=== PATIENT | female | born 1950 | race Caucasian/White ===

== ENCOUNTER 2023-04-19 16:15 | Inpatient (IN) | payer MEDICARE, BC ==
[2023-04-19] MEDS ORDERED: DEXTROSE 5%-0.45% NACL 1,000 ML IV ONE (16:21)
[2023-04-19 16:22] LABS: Glucose,Whole Blood 73 mg/dL (70-110)
[2023-04-19] MEDS ORDERED: NALOXONE 0.4 MG/ML 1 ML VIAL IV PRN (16:40)
--- NOTE | 2023-04-19 16:40 | ED ---
General Adult HPI - General Chief complaint: Recheck/Abnormal Lab/Rx Stated complaint: Hypoglycemia Time Seen by Provider: 04/19/23 16:18 Source: patient, RN/MD (Discussed with transferring physician), EMS, RN notes reviewed, old records reviewed (Review of records from [place]) Mode of arrival: EMS Limitations: no limitations - History of Present Illness Initial comments: Patient is a pleasant 79-year-old female presenting to the emergency Department as a transfer from [place]. Patient originally went there with a questionable seizure episode. Patient was fine and discharged. Patient later returned with hypoglycemia. Patient was held and had recurrent hypoglycemia. Patient was then decided to transfer secondary to level of care. Patient reevaluated at this time. Blood sugar bedside 74. Patient is symptom-free currently. Patient does not recall the episode earlier this morning. Chart was reviewed. - Related Data Allergies Allergy/AdvReac Type Severity Reaction Status Date / Time No Known Allergies Allergy Verified 04/19/23 16:29 Review of Systems ROS Statement: Those systems with pertinent positive or pertinent negative responses have been documented in the HPI. ROS Other: All systems not noted in ROS Statement are negative. Constitutional: Denies: fever Eyes: Denies: eye pain ENT: Denies: ear pain Respiratory: Denies: cough Cardiovascular: Denies: chest pain Endocrine: Denies: fatigue Gastrointestinal: Denies: abdominal pain Genitourinary: Denies: dysuria Past Medical History Past Medical History: Atrial Fibrillation History of Any Multi-Drug Resistant Organisms: None Reported Past Surgical History: No Surgical Hx Reported Smoking Status: Former smoker Past Alcohol Use History: None Reported Past Drug Use History: None Reported General Exam Limitations: no limitations General appearance: alert, in no apparent distress Head exam: Present: atraumatic Eye exam: Present: normal appearance, PERRL, EOMI ENT exam: Present: normal oropharynx Neck exam: Present: normal inspection Respiratory exam: Present: normal lung sounds bilaterally Cardiovascular Exam: Present: regular rate, normal rhythm GI/Abdominal exam: Present: soft. Absent: tenderness Extremities exam: Present: normal inspection Neurological exam: Present: alert, oriented X3, CN II-XII intact. Absent: motor sensory deficit Psychiatric exam: Present: normal affect, normal mood Skin exam: Present: normal color Course Vital Signs 04/19/23 16:18 Temperature 98.7 F Pulse Rate 70 Respiratory 18 Rate Blood Pressure 108/60 O2 Sat by Pulse 99 Oximetry Medical Decision Making - Medical Decision Making Was pt. sent in by a medical professional or institution (, [facility], HADOOP ENGINEER, urgent care, hospital, or fpc...) When possible be specific @ -Patient was sent from [facility] Did you speak to anyone other than the patient for history (EMS, parent, family, police, friend...)? What history was obtained from this source @ -Discuss case with transferring physician Did you review nursing and triage notes (agree or disagree)? Why? @ -I reviewed and agree with nursing and triage notes Were old charts reviewed (outside hosp., previous admission, EMS record, old EKG, old radiological studies, urgent care reports/EKG's, fpc records)? Report findings @ -Viewed charts from [facility] Differential Diagnosis (chest pain, altered mental status, abdominal pain women, abdominal pain men, vaginal bleeding, weakness, fever, dyspnea, syncope, headache, dizziness, GI bleed, back pain, seizure, CVA, palpatations, mental health, musculoskeletal)? @ -Differential Altered Mental Status: Hypoglycemia, DKA, hypercapnia, ETOH, overdose, CO poisoning, trauma, myxedema coma, HTN encephalopathy, infection, encephalitis, psychosis, intercranial hemorrhage, hepatic encephalopathy, meningitis, CVA, this is not meant to be an all-inclusive list EKG interpreted by me (3pts min.). @ -As above X-rays interpreted by me (1pt min.). @ -None done CT interpreted by me (1pt min.). @ -None done U/S interpreted by me (1pt. min.). @ -None done What testing was considered but not performed or refused? (CT, X-rays, U/S, labs)? Why? @ -None What meds were considered but not given or refused? Why? @ -None Did you discuss the management of the patient with other professionals (professionals i.e. VAZQUE[facility] Clark, HADOOP ENGINEER, lab, RT, psych nurse, social work associate, ground support equipment mechanic, teacher, air antisubmarine officer, correctional case manager)? Give summary @ -Case was discussed with Dr. Milian, who will admit For hospital call. He recommends continuing D5 half. Was smoking cessation discussed for >3mins.? @ -No Was critical care preformed (if so, how long)? @ -No Were there social determinants of health that impacted care today? How? (Homelessness, low income, unemployed, alcoholism, drug addiction, transportation, low edu. Level, literacy, decrease access to med. care, fpc, rehab)? @ -No Was there de-escalation of care discussed even if they declined (Discuss DNR or withdrawal of care, Hospice)? DNR status @ -No What co-morbidities impacted this encounter? (DM, HTN, Smoking, COPD, CAD, Cancer, CVA, ARF, Chemo, Hep., AIDS, mental health diagnosis, sleep apnea, morbid obesity)? @ -None Was patient admitted / discharged? Hospital course, mention meds given and route, prescriptions, significant lab abnormalities, going to OR and other pertinent info. @ -Patient made aware of plan. Patient will be admitted. Orders written. Undiagnosed new problem with uncertain prognosis? @ -No Drug Therapy requiring intensive monitoring for toxicity (Heparin, Nitro, Insulin, Cardizem)? @ -No Were any procedures done? @ -No Diagnosis/symptom? @ -Recurrent hypoglycemia Acute, or Chronic, or Acute on Chronic? @ -Acute Uncomplicated (without systemic symptoms) or Complicated (systemic symptoms)? @ -default Side effects of treatment? @ -No Exacerbation, Progression, or Severe Exacerbation? @ -No Poses a threat to life or bodily function? How? (Chest pain, [place], PR, pneumonia, PE, COPD, DKA, ARF, appy, cholecystitis, CVA, Diverticulitis, Homicidal, Suicidal, threat to staff... and all critical care pts) @ -No - Lab Data Lab Results 04/19/23 Range/Units 16:20 POC Glucose (mg/dL) 73 (70-110) mg/dL POC Glu Dimpling Machine Operator ID Zoie Pandya Disposition Clinical Impression: Hypoglycemia Disposition: ADMITTED IP TO THIS HOSP Is patient prescribed a controlled substance at d/c from ED?: No Referrals: Nonstaff,Physician [Primary Care Provider] - 1-2 days Time of Disposition: 16:40
[2023-04-19 17:17] LABS: Appearance,Urine Clear (Clear); Basophils % (A) 0 %; Bilirubin,Urine Negative (Negative); Blood,Urine Negative (Negative); Color,Urine Colorless; Eosinophils # (A) 0.1 k/uL (0-0.7); Eosinophils % (A) 2 %; Glucose,Urine (UA) Negative (Negative); HCT 29.9 % (34.0-46.0); Ketones,Urine Negative (Negative); Leukocyte Esterase,Urine Negative (Negative); Lymphocytes # (A) 1.6 k/uL (1.0-4.8); Lymphocytes % (A) 21 %; MCH 29.8 pg (25.0-35.0); MCHC 33.3 g/dL (31.0-37.0); MCV 89.5 fL (80.0-100.0); Mean Platelet Volume 9.1; Monocytes # (A) 0.4 k/uL (0-1.0); Monocytes % (A) 5 %; Neutrophils # (A) 5.4 k/uL (1.3-7.7); Neutrophils % (A) 71 %; Nitrite,Urine Negative (Negative); Platelet Count 182 k/uL (150-450); Protein,Urine Negative (Negative); RBC 3.34 m/uL (3.80-5.40); RDW 13.7 % (11.5-15.5); Specific Gravity,Urine 1.002 (1.001-1.035); Urobilinogen,Urine <2.0 mg/dL (<2.0); WBC 7.6 k/uL (3.8-10.6)
[2023-04-19 17:25] LABS: INR 1.6 (<1.2); Partial Thromboplastin Time 26.2 sec (22.0-30.0); Prothrombin Time 15.8 sec (9.0-12.0)
--- NOTE | 2023-04-19 17:40 | XR ---
EXAMINATION TYPE: XR chest 2V DATE OF EXAM: 04/19/2023 5:36 PM COMPARISON: Chest radiographs from 02/13/2022 TECHNIQUE: XR chest 2V Frontal and lateral views of the chest. CLINICAL INDICATION:Female, 72 years old with history of Weakness; FINDINGS: Lungs/Pleura: Prominent interstitial lung markings are seen scattered throughout the lungs. No eviden ce of focal consolidation, pneumothorax or pleural effusion. Pulmonary vascularity: Pulmonary vascular congestion. Heart/mediastinum: Cardiomediastinal silhouette is prominent in size. Post aortic valve repair garcia es. Single-lead cardiac conduction device overlying the left hemithorax with lead projecting over the right ventricle. Musculoskeletal: No acute osseous pathology. IMPRESSION: Postsurgical changes to the heart. Underlying COPD with mild pulmonary vascular congestion. Correlate with serum BNP.
[2023-04-19 17:47] LABS: ALT 14 U/L (4-34); AST 27 U/L (14-36); African American GFR (CKD) 66 (>60 ml/min/1.73 sqM); Albumin 3.5 g/dL (3.5-5.0); Alkaline Phosphatase 85 U/L (38-126); Anion Gap 6 mmol/L; Blood Urea Nitrogen 23 mg/dL (7-17); Calcium 8.3 mg/dL (8.4-10.2); Carbon Dioxide 25 mmol/L (22-30); Chloride 105 mmol/L (98-107); Magnesium 1.6 mg/dL (1.6-2.3); Non-African American GFR(CKD) 57 (>60 ml/min/1.73 sqM); Phosphorus 2.6 mg/dL (2.5-4.5); Potassium 4.4 mmol/L (3.5-5.1); Sodium 136 mmol/L (137-145); Total Bilirubin 0.3 mg/dL (0.2-1.3); Total Protein 6.4 g/dL (6.3-8.2)
[2023-04-19 17:56] LABS: Glucose 44 mg/dL (74-99)
[2023-04-19] MEDS ORDERED: GLUCAGON 1 MG/ML VIAL IVP STA (17:59)
[2023-04-19] MEDS ORDERED: DEXTROSE 50% SYRINGE 50 ML IVP STA (17:59)
[2023-04-19 18:01] LABS: T4, Free (Free Thyroxine) 0.84 ng/dL (0.78-2.19)
[2023-04-19 18:03] LABS: Glucose,Whole Blood 68 mg/dL (70-110)
[2023-04-19 18:35] LABS: Glucose,Whole Blood 104 mg/dL (70-110)
[2023-04-19 19:56] LABS: Glucose,Whole Blood 133 mg/dL (70-110)
[2023-04-19 22:01] LABS: Glucose,Whole Blood 146 mg/dL (70-110)
[2023-04-19] MEDS: ZOLPIDEM 5 MG TAB PO PRN (22:37)
[2023-04-20 00:03] LABS: Glucose,Whole Blood 108 mg/dL (70-110)
[2023-04-20 01:59] LABS: Glucose,Whole Blood 118 mg/dL (70-110)
[2023-04-20 04:01] LABS: Glucose,Whole Blood 108 mg/dL (70-110)
[2023-04-20 06:05] LABS: Glucose,Whole Blood 99 mg/dL (70-110)
[2023-04-20 07:49] LABS: Glucose,Whole Blood 110 mg/dL (70-110)
[2023-04-20 08:52] VITALS: RESP 16
[2023-04-20] MEDS ORDERED: ACETAMINOPHEN TAB 325 MG TAB PO PRN (09:53)
[2023-04-20 09:58] LABS: Glucose,Whole Blood 100 mg/dL (70-110)
[2023-04-20] MEDS ORDERED: ALPRAZolam 1 MG TAB PO PRN (10:58)
[2023-04-20] MEDS ORDERED: FERROUS SULFATE 325 MG TAB PO SCH (11:15)
[2023-04-20 11:52] LABS: Basophils % (A) 0 %; Eosinophils # (A) 0.2 k/uL (0-0.7); Eosinophils % (A) 4 %; HGB 10.6 gm/dL (11.4-16.0); Hypochromasia Slight; Lymphocytes # (A) 1.8 k/uL (1.0-4.8); Lymphocytes % (A) 30 %; MCH 29.5 pg (25.0-35.0); MCV 92.3 fL (80.0-100.0); Mean Platelet Volume 9.5; Monocytes # (A) 0.3 k/uL (0-1.0); Monocytes % (A) 5 %; Neutrophils # (A) 3.6 k/uL (1.3-7.7); Neutrophils % (A) 60 %; Platelet Count 173 k/uL (150-450); RBC 3.58 m/uL (3.80-5.40); RDW 13.8 % (11.5-15.5); WBC 6.1 k/uL (3.8-10.6)
[2023-04-20 12:08] LABS: African American GFR (CKD) 72 (>60 ml/min/1.73 sqM); Anion Gap 7 mmol/L; Blood Urea Nitrogen 18 mg/dL (7-17); Calcium 9.2 mg/dL (8.4-10.2); Carbon Dioxide 24 mmol/L (22-30); Chloride 110 mmol/L (98-107); Glucose 94 mg/dL (74-99); Non-African American GFR(CKD) 63 (>60 ml/min/1.73 sqM); Potassium 4.8 mmol/L (3.5-5.1); Sodium 141 mmol/L (137-145)
[2023-04-20 12:15] LABS: Glucose,Whole Blood 122 mg/dL (70-110)
[2023-04-20 12:40] LABS: INR 1.6 (<1.2); Prothrombin Time 15.7 sec (9.0-12.0)
[2023-04-20] MEDS: SPIRONOLACTONE 25 MG TAB PO SCH (12:58)
[2023-04-20] MEDS: FERROUS SULFATE 325 MG TAB PO SCH (12:58)
[2023-04-20] MEDS: LOSARTAN 50 MG TAB PO SCH (12:59)
[2023-04-20] MEDS: FUROSEMIDE 40 MG TAB PO SCH (13:00)
[2023-04-20] MEDS: TORSEMIDE 20 MG TAB PO SCH (13:00)
[2023-04-20 14:24] LABS: Glucose,Whole Blood 133 mg/dL (70-110)
--- NOTE | 2023-04-20 14:31 | P.HPIM ---
History of Present Illness H&P Date: 04/20/23 Chief Complaint: Altered mentation * 72-year-old lady with past medical history significant for atrial fibrillation, history of congestive heart failure, status post pacemaker placement, history of valvular surgery on anticoagulation was sent in for altered mentation * Workup initiated including comprehensive metabolic panel which showed sodium of 136, BUN and creatinine of 23 0.98, blood glucose of 44. Lactate of 1. * CBC was obtained which showed normal white cell count hemoglobin of 10 platelet count of 182 * She is on Coumadin with INR of 1.6 * Secondary to persistent hypoglycemia patient was started on D5 drip and serial blood glucose levels were monitored * At the time of evaluation patient was alert and oriented 4. Workup initiated including HbA1c. Patient to be monitored off fluids REVIEW OF SYSTEMS: CONSTITUTIONAL: No fever, no malaise, no fatigue. HEENT: No recent visual problems or hearing problems. Denied any sore throat. CARDIOVASCULAR: No chest pain, orthopnea, PND, no palpitations, no syncope. PULMONARY: No shortness of breath, no cough, no hemoptysis. GASTROINTESTINAL: No diarrhea, no nausea, no vomiting, no abdominal pain. NEUROLOGICAL: No headaches, no weakness, no numbness. HEMATOLOGICAL: Denies any bleeding or petechiae. GENITOURINARY: Denies any burning micturition, frequency, or urgency. MUSCULOSKELETAL/RHEUMATOLOGICAL: Denies any joint pain, swelling, or any muscle pain. ENDOCRINE: Denies any polyuria or polydipsia. The rest of the 14-point review of systems is negative. PHYSICAL EXAMINATION: GENERAL: The patient is alert and oriented x3, not in any acute distress. Well developed, well nourished. HEENT: Pupils are round and equally reacting to light. EOMI. No scleral icterus. No conjunctival pallor. Normocephalic, atraumatic. No pharyngeal erythema. No thyromegaly. CARDIOVASCULAR: S1 and S2 present. No murmurs, rubs, or gallops. PULMONARY: Chest is clear to auscultation, no wheezing or crackles. ABDOMEN: Soft, nontender, nondistended, normoactive bowel sounds. No palpable organomegaly. MUSCULOSKELETAL: No joint swelling or deformity. EXTREMITIES: No cyanosis, clubbing, or pedal edema. NEUROLOGICAL: Gross neurological examination did not reveal any focal deficits. SKIN: No rashes. Past Medical History Past Medical History: Atrial Fibrillation, COPD, CVA/TIA, Hyperlipidemia, Hypertension, Pneumonia Additional Past Medical History / Comment(s): home o2 prn History of Any Multi-Drug Resistant Organisms: None Reported Past Surgical History: Adenoidectomy, Coronary Bypass/CABG, Hysterectomy, Pacemaker, Tonsillectomy Additional Past Surgical History / Comment(s): 2 open heart sx for aortic valve replacement Past Anesthesia/Blood Transfusion Reactions: No Reported Reaction Type of Cardiac Device: AICD Device Placement Date:: 2021 Past Psychological History: No Psychological Hx Reported Smoking Status: Former smoker Past Alcohol Use History: None Reported Past Drug Use History: None Reported Medications and Allergies Home Medications Medication Instructions Recorded Confirmed Type ALPRAZolam [Xanax] 1 mg PO TID PRN 04/19/23 04/19/23 History Fergon 324mg 1 tab PO DAILY 04/19/23 04/19/23 History Furosemide [Lasix] 40 mg PO DAILY 04/19/23 04/19/23 History HYDROcodone/APAP 10-325MG [[place] 1 tab PO Q6H PRN 04/19/23 04/19/23 History 10-325] Levocetirizine Dihydrochloride 5 mg PO HS 04/19/23 04/19/23 History [Xyzal] Losartan [Cozaar] 50 mg PO DAILY 04/19/23 04/19/23 History Naloxone HCl [Narcan] 4 mg NASAL DIRECTED PRN 04/19/23 04/19/23 History Spironolactone [Aldactone] 25 mg PO DAILY 04/19/23 04/19/23 History Torsemide [Soaanz] 20 mg PO DAILY 04/19/23 04/19/23 History Warfarin [Coumadin] 2 mg PO DAILY 04/19/23 04/19/23 History Zolpidem [Ambien] 10 mg PO HS PRN 04/19/23 04/19/23 History Allergies Allergy/AdvReac Type Severity Reaction Status Date / Time No Known Allergies Allergy Verified 04/19/23 16:29 Physical Exam Vitals: Vital Signs Temp Pulse Pulse Resp BP BP Pulse Ox 04/20/23 07:33 97.8 F 71 16 109/63 99 04/20/23 02:02 92/51 04/20/23 01:50 98.8 F 73 17 96 04/19/23 19:17 99.8 F H 64 16 111/62 99 04/19/23 18:13 74 14 106/48 95 04/19/23 16:18 98.7 F 70 18 108/60 99 Intake and Output 04/19/23 04/20/23 04/20/23 22:59 06:59 14:59 Other: Voiding Method Toilet Toilet # Voids 1 Weight 47.174 kg Results CBC & Chem 7: 04/20/23 11:09 04/20/23 11:09 Labs: Abnormal Lab Results - Last 24 Hours (Table) 04/19/23 04/19/23 04/19/23 Range/Units 16:58 16:58 16:58 RBC 3.34 L (3.80-5.40) m/uL Hgb 10.0 L (11.4-16.0) gm/dL Hct 29.9 L (34.0-46.0) % PT 15.8 H (9.0-12.0) sec INR 1.6 H (<1.2) Sodium 136 L (137-145) mmol/L Chloride (98-107) mmol/L BUN 23 H (7-17) mg/dL Glucose 44 L* (74-99) mg/dL POC Glucose (mg/dL) (70-110) mg/dL Calcium 8.3 L (8.4-10.2) mg/dL 04/19/23 04/19/23 04/19/23 Range/Units 17:57 19:55 21:57 RBC (3.80-5.40) m/uL Hgb (11.4-16.0) gm/dL Hct (34.0-46.0) % PT (9.0-12.0) sec INR (<1.2) Sodium (137-145) mmol/L Chloride (98-107) mmol/L BUN (7-17) mg/dL Glucose (74-99) mg/dL POC Glucose (mg/dL) 68 L 133 H 146 H (70-110) mg/dL Calcium (8.4-10.2) mg/dL 04/20/23 04/20/23 04/20/23 Range/Units 01:55 11:09 11:09 RBC 3.58 L (3.80-5.40) m/uL Hgb 10.6 L (11.4-16.0) gm/dL Hct 33.0 L (34.0-46.0) % PT (9.0-12.0) sec INR (<1.2) Sodium (137-145) mmol/L Chloride 110 H (98-107) mmol/L BUN 18 H (7-17) mg/dL Glucose (74-99) mg/dL POC Glucose (mg/dL) 118 H (70-110) mg/dL Calcium (8.4-10.2) mg/dL 04/20/23 04/20/23 04/20/23 Range/Units 11:29 12:14 14:22 RBC (3.80-5.40) m/uL Hgb (11.4-16.0) gm/dL Hct (34.0-46.0) % PT 15.7 H (9.0-12.0) sec INR 1.6 H (<1.2) Sodium (137-145) mmol/L Chloride (98-107) mmol/L BUN (7-17) mg/dL Glucose (74-99) mg/dL POC Glucose (mg/dL) 122 H 133 H (70-110) mg/dL Calcium (8.4-10.2) mg/dL Thrombosis Risk Factor Assmnt - Choose All That Apply Any of the Below Risk Factors Present?: Yes Each Factor Represents 1 point: Abnormal pulmonary function (COPD) Each Risk Factor Represents 2 Points: Age 61-74 years Thrombosis Risk Factor Assessment Total Risk Factor Score: 3 Thrombosis Risk Factor Assessment Level: Moderate Risk Assessment and Plan Assessment: Assessment and plan * Acute metabolic encephalopathy with hypo glycemia * History of atrial fibrillation * Valvular heart disease with prosthetic valve * Chronic anticoagulation * Chronic congestive heart failure unknown type * Hypertension * Chronic anemia * Patient placed in observation. Started on D5 drip noted to have persistent hypoglycemia. Patient eventually weaned off fluids * Blood glucose ordered every 2 hours, initiated planned to transition to every 4 hours * Home medications reviewed continue patient on Lasix, torsemide, losartan, ferrous sulfate, Aldactone * Continue Coumadin and pharmacy to dose * Potential discharge within the next 24 hours * CODE STATUS is full code
[2023-04-20 16:17] VITALS: BMI 18.4
[2023-04-20 17:15] LABS: Glucose,Whole Blood 107 mg/dL (70-110)
[2023-04-20] MEDS ORDERED: WARFARIN 3 MG TAB PO ONE (18:00)
[2023-04-20 19:56] LABS: Glucose,Whole Blood 147 mg/dL (70-110)
[2023-04-20] MEDS ORDERED: LORATADINE 10 MG TAB PO SCH (21:00)
[2023-04-21 00:09] LABS: Glucose,Whole Blood 111 mg/dL (70-110)
[2023-04-21] MEDS: ZOLPIDEM 5 MG TAB PO PRN (00:51)
[2023-04-21 04:09] LABS: Glucose,Whole Blood 103 mg/dL (70-110)
[2023-04-21 06:18] LABS: INR 1.6 (<1.2); Prothrombin Time 15.8 sec (9.0-12.0)
[2023-04-21 07:22] LABS: Glucose,Whole Blood 108 mg/dL (70-110)
[2023-04-21 07:42] VITALS: BP 94/60; PULSE 73; TEMP 98.6
[2023-04-21] MEDS: LOSARTAN 50 MG TAB PO SCH (08:49)
[2023-04-21] MEDS: SPIRONOLACTONE 25 MG TAB PO SCH (08:49)
[2023-04-21 09:00] LABS: HCT 35.5 % (37.2-46.3); HGB 11.7 d/dL (12.0-15.0); MCH 29.2 pg (27.0-32.0); MCV 88.5 FL (80.0-97.0); Mean Platelet Volume 11.3 FL (9.5-12.2); NRBC Per 100 WBC 0 X 10*3/uL (0.00-0.01); Platelet Count 221 X 10*3/uL (140-440); RBC 4.01 X 10*6/uL (4.10-5.20); RDW 13.8 % (11.5-14.5); WBC 7.31 X 10*3/uL (4.50-10.00)
[2023-04-21] MEDS: FUROSEMIDE 40 MG TAB PO SCH (09:04)
[2023-04-21] MEDS: FERROUS SULFATE 325 MG TAB PO SCH (09:04)
[2023-04-21 09:07] LABS: BUN/Creat Ratio 17.64 Ratio (12.00-20.00); Blood Urea Nitrogen 19.4 mg/dL (9.0-27.0); Calcium 9.7 mg/dL (8.7-10.3); Carbon Dioxide 26.2 mmol/L (21.6-31.8); Chloride 103 mmol/L (96-109); Glucose 93 mg/dL (70-110); Potassium 4.1 mmol/L (3.5-5.5); Sodium 140 mmol/L (135-145)
[2023-04-21] MEDS: TORSEMIDE 20 MG TAB PO SCH (09:32)
--- NOTE | 2023-04-21 10:26 | P.DS ---
Providers Date of admission: 04/19/23 16:40 Expected date of discharge: 04/21/23 Attending physician: Jessika Milian Primary care physician: Kanarraville Quynh Craig Hospital Course: 72-year-old lady with past medical history significant for atrial fibrillation, history of congestive heart failure, status post pacemaker placement, history of valvular surgery on anticoagulation was sent in for altered mentation * Workup initiated including comprehensive metabolic panel which showed sodium of 136, BUN and creatinine of 23 0.98, blood glucose of 44. Lactate of 1. * CBC was obtained which showed normal white cell count hemoglobin of 10 platelet count of 182 * She is on Coumadin with INR of 1.6 * Secondary to persistent hypoglycemia patient was started on D5 drip and serial blood glucose levels were monitored * At the time of evaluation patient was alert and oriented 4. Workup initiated including HbA1c. Patient to be monitored off fluids * Patient was started on dextrose drip. Glucose remained elevated and stable. Was weaned off fluids * Metabolic workup including HbA1c within normal limits TSH within normal limits * Discussed INR levels offered Lovenox shot for bridging patient refused PHYSICAL EXAMINATION: GENERAL: The patient is alert and oriented x3, not in any acute distress. Well developed, well nourished. HEENT: Pupils are round and equally reacting to light. EOMI. No scleral icterus. No conjunctival pallor. Normocephalic, atraumatic. No pharyngeal erythema. No thyromegaly. CARDIOVASCULAR: S1 and S2 present. No murmurs, rubs, or gallops. PULMONARY: Chest is clear to auscultation, no wheezing or crackles. ABDOMEN: Soft, nontender, nondistended, normoactive bowel sounds. No palpable organomegaly. MUSCULOSKELETAL: No joint swelling or deformity. EXTREMITIES: No cyanosis, clubbing, or pedal edema. NEUROLOGICAL: Gross neurological examination did not reveal any focal deficits. SKIN: No rashes. Assessment and plan * Acute metabolic encephalopathy with hypo glycemia * History of atrial fibrillation * Valvular heart disease with prosthetic valve * Chronic anticoagulation * Chronic congestive heart failure unknown type * Hypertension * Chronic anemia * Patient placed in observation. Started on D5 drip noted to have persistent hypoglycemia. Patient eventually weaned off fluids, blood glucose remained stable * Blood glucose ordered every 2 hours, initiated planned to transition to every 4 hours, HbA1c within normal limits TSH within normal limits * Home medications reviewed continue patient on Lasix, torsemide, losartan, ferrous sulfate, Aldactone * Continue Coumadin, discuss with primary care physician regarding dose adjustment to outpatient>> offered Lovenox shot for bridging however patient refused * Discharged home with follow-up with PCP and cardiology Patient Condition at Discharge: Fair Plan - Discharge Summary Discharge Rx Participant: No New Discharge Prescriptions: Continue Torsemide [Soaanz] 20 mg PO DAILY Spironolactone [Aldactone] 25 mg PO DAILY Naloxone HCl [Narcan] 4 mg NASAL DIRECTED PRN PRN Reason: overdose Losartan [Cozaar] 50 mg PO DAILY ALPRAZolam [Xanax] 1 mg PO TID PRN PRN Reason: Anxiety Warfarin [Coumadin] 2 mg PO DAILY Zolpidem [Ambien] 10 mg PO HS PRN PRN Reason: Insomnia HYDROcodone/APAP 10-325MG [[place] 10-325] 1 tab PO Q6H PRN PRN Reason: Pain Furosemide [Lasix] 40 mg PO DAILY Fergon 324mg 1 tab PO DAILY Levocetirizine Dihydrochloride [Xyzal] 5 mg PO HS Discharge Medication List ALPRAZolam [Xanax] 1 mg PO TID PRN 04/19/23 [History] Fergon 324mg 1 tab PO DAILY 04/19/23 [History] Furosemide [Lasix] 40 mg PO DAILY 04/19/23 [History] HYDROcodone/APAP 10-325MG [[place] 10-325] 1 tab PO Q6H PRN 04/19/23 [History] Levocetirizine Dihydrochloride [Xyzal] 5 mg PO HS 04/19/23 [History] Losartan [Cozaar] 50 mg PO DAILY 04/19/23 [History] Naloxone HCl [Narcan] 4 mg NASAL DIRECTED PRN 04/19/23 [History] Spironolactone [Aldactone] 25 mg PO DAILY 04/19/23 [History] Torsemide [Soaanz] 20 mg PO DAILY 04/19/23 [History] Warfarin [Coumadin] 2 mg PO DAILY 04/19/23 [History] Zolpidem [Ambien] 10 mg PO HS PRN 04/19/23 [History] Follow up Appointment(s)/Referral(s): Nonstaff,Physician [REFERRING] - 1-2 days Activity/Diet/Wound Care/Special Instructions: Encouraged increase oral intake to avoid hypoglycemia Need to follow-up with primary care physician to adjust dose of Coumadin and maintain INR above therapeutic range. Discussed with cardiology regarding INR goals Discharge Disposition: HOME SELF-CARE
[2023-04-21] MEDS ORDERED: WARFARIN 3 MG TAB PO ONE (18:00)
== END 2023-04-21 12:25 | disposition home or self-care (01) | DRG 640 ==
LOC: EC 16:15 → 5NMEDONC 16:40
PROVIDERS: ADMIT Internal Medicine; ATTEND Internal Medicine
DX: E16.2 Hypoglycemia, unspecified (principal); G93.41 Metabolic encephalopathy; D64.9 Anemia, unspecified; E78.5 Hyperlipidemia, unspecified; I11.0 Hypertensive heart disease with heart failure; I48.91 Unspecified atrial fibrillation; I50.9 Heart failure, unspecified; J44.9 Chronic obstructive pulmonary disease, unspecified; Z79.01 Long term (current) use of anticoagulants; Z79.899 Other long term (current) drug therapy; Z90.710 Acquired absence of both cervix and uterus; Z95.1 Presence of aortocoronary bypass graft; Z95.2 Presence of prosthetic heart valve; Z95.0 Presence of cardiac pacemaker; Z87.891 Personal history of nicotine dependence
CPT/HCPCS: 36415; 71046; 80048; 80053; 81003; 83036; 83605; 83735; 84100; 84439; 84443; 84481; 84484; 85025; 85027; 85610; 85730; 86140; 93005; 96361; 96374; 99285